=== PATIENT | male | born 1975 | race Hispanic/Latino ===

== ENCOUNTER → 2025-03-17 | Outpatient (CLI) | payer MEDICAID ==
[2025-03-17 13:54] LABS: IMMATURE GRANULOCYTE ABSOLUTE 0.03 K/uL (0-1); NUCLEATED RED BLOOD CELLS 0.0 % (0.0-0.19); PLATELET COUNT (AUTO) 170 K/uL (130-400); RED BLOOD CELL COUNT(AUTO) 5.83 MIL/uL (4.50-6.20); RED CELL DISTRIBUTION WIDTH 15.5 % (11.0-15.5); WHITE BLOOD COUNT (AUTO) 7.0 K/uL (4.8-10.8)
[2025-03-17 14:33] LABS: ASPARTATE AMINOTRANSFERASE 14.0 U/L (10-37); CREATININE 2.0 mg/dL (0.5-1.3); GLOMERULAR FILTR. RATE CALC 41.0 mL/min (>90); GLUCOSE,RANDOM 125.0 mg/dL (70-105); LDL DIRECT 113.0 mg/dL (0-99); SODIUM SERUM 142.0 mmol/L (136-145); TOTAL PROTEIN, SERUM 8.0 g/dL (6.0-8.3); UREA NITROGEN, BLOOD 17.0 mg/dL (7-18)
--- NOTE | 2025-03-17 15:03 | EKG ---
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
== END | disposition home or self-care (01) ==
LOC: LAB 13:09
PROVIDERS: ATTEND Psychiatry & Neurology Psychiatry
DX: Z00.00 Encounter for general adult medical examination without abnormal findings (principal)
CPT/HCPCS: 36415; 80053; 80061; 82306; 82607; 82746; 83036; 84207; 84443; 85025; 93005